=== PATIENT | male | born 1980 | race Two or more races ===

== ENCOUNTER 2017-11-09 13:39 | Emergency (ER) | payer MEDICAID ==
[~2017-11-09] VITALS: Ht 170.2 cm; Wt 73.9 kg
[2017-11-09] MEDS ORDERED: Dexamethasone 4mg/ml vial IM ONE (14:45)
--- NOTE | 2017-11-09 14:45 | Emergency Room Report ---
History of Present Illness General Chief Complaint: Sore Throat Source: Patient Present Illness HPI 37-year-old male presents to the emergency department complaining of 9 out of 10 in severity pain and swelling to the left side of his throat and tonsil progressive 2 days. Patient denies fevers or chills. Patient denies cough. Patient states that he was evaluated by his PMD and was instructed to come to the emergency department. Patient reports changes to his voice. He denies tenderness or pain under the tongue. Denies neck pain or stiffness. Denies CP, Palpitations, LOC, AMS, dizziness, Changes in Vision, Sensation, paresthesias, or a sudden severe headache. Allergies: Coded Allergies: No Known Allergies (Unverified , 11/09/17) Patient History Past Medical History: see triage record Past Surgical History: none Pertinent Family History: none Reviewed Nursing Documentation: PMH: Agreed, PSxH: Agreed Nursing Documentation-PMH Past Medical History: No Stated History Review of Systems All Other Systems: negative except mentioned in HPI Physical Exam Vital Signs Date Time Temp Pulse Resp B/P (MAP) Pulse Ox O2 Delivery O2 Flow Rate FiO2 11/09/17 14:22 99.1 92 18 136/86 98 Room Air 99.1 ENT: tonsillar swelling, other - moderate soft tissue swelling of the left posterior tonsillar pillar, uvular shift to the right side. , no TTp under the tongue. Neck: no meningismus, no bony tend Procedures Incision and Drainage Incision and Drainage : Consent: Verbal Site: Left Posterior tonsillar pillar Blade Size: 18 Guage Spinal needle, with cover -cut and used as a guide. Wound Location: other - throat Wound's Depth, Shape: other - moderate soft tissue swelling of the left posterior tonsillar pillar, uvular shift to the right side. Wound Explored: contaminated - purulent d/c aspirated ~ 10cc Anesthesia: other - 4% Lidocaine nebulized Volume Anesthetic (ccs): 5 Splint Applied?: No Sling Applied?: No Patient Tolerated: Well Complications: None Medical Decision Making PA Attestation Dr. Harris is my supervising Physician whom patient management has been discussed with. Diagnostic Impression: Primary Impression: Peritonsillar abscess ER Course 37-year-old male presents to the emergency department complaining of 9 out of 10 in severity pain and swelling to the left side of his throat and tonsil progressive 2 days. Patient denies fevers or chills. Patient denies cough. Patient states that he was evaluated by his PMD and was instructed to come to the emergency department. Patient reports changes to his voice. He denies tenderness or pain under the tongue. Denies neck pain or stiffness. Denies CP, Palpitations, LOC, AMS, dizziness, Changes in Vision, Sensation, paresthesias, or a sudden severe headache. Ddx considered but are not limited to: pharyngitis, strep, [employer], ludwigs angina, retropharyngeal abscess, URI just to name a few. Vital signs: are WNL, pt. is afebrile H&PE are most consistent with: Left sided [employer] ORDERS: None required at this time as the diagnosis is clinical ED INTERVENTIONS: -Drainage: 10cc of purulent d/c was aspirated with a 18g Spinal needle. - Clindamycin IM -Decadron IM -[place] PO -d/c instructions translated to pt. by LEELEE Malagon. DISCHARGE: At this time pt. is stable for d/c to home. Will provide printed patient care instructions, and any necessary prescriptions. Care plan and follow up instructions have been discussed with the patient prior to discharge. Last Vital Signs Date Time Temp Pulse Resp B/P (MAP) Pulse Ox O2 Delivery O2 Flow Rate FiO2 11/09/17 14:22 99.1 92 18 136/86 98 Room Air 99.1 Disposition: HOME, SELF-CARE Condition: Stable Scripts Hydrocodone Bit/Acetaminophen 5-325* (NORCO 5-325*) 1 Each Tablet 1 TAB ORAL Q6H Y for For Pain, #5 TAB 0 Refills Prov: Radha Montague P.A. 11/09/17 Ibuprofen* (MOTRIN*) 600 Mg Tablet 600 MG ORAL THREE TIMES A DAY, #20 TAB 0 Refills Prov: Radha Montague P.A. 11/09/17 Clindamycin Hcl (CLINDAMYCIN HCL) 300 Mg Capsule 300 MG ORAL FOUR TIMES A DAY for 7 Days, #28 CAP Prov: Radha Montague P.A. 11/09/17 Patient Instructions: Peritonsillar Abscess Additional Instructions: Take medications as directed. Follow up with an ENT Specialist within 24 hours, even if your symptoms have resolved. --Please review list of primary care clinics, if you do not already have a primary care provider Return sooner to ED if new symptoms occur, or current symptoms become worse. Do not drink alcohol, drive, or operate heavy machinery while taking [place] as this may cause drowsiness. - Please note that this Emergency Department Report was dictated using [employer] client associate technology software, occasionally this can lead to erroneous entry secondary to interpretation by the dictation equipment. Radha Montague Nov 09, 2017 14:45
[2017-11-09] MEDS ORDERED: Lidocaine 4% Amp INH ONE (15:00)
[2017-11-09] MEDS ORDERED: Ketorolac 30mg Inj IM ONE (15:15)
[2017-11-09] MEDS ORDERED: IBUPROFEN600 MG ORAL (15:43)
[2017-11-09] MEDS ORDERED: CLINDAMYCIN HC300 MG ORAL (15:43)
[2017-11-09] MEDS ORDERED: NORCO 5-325 TA1 EACH ORAL (15:43)
[2017-11-09] MEDS ORDERED: HYDROcodone/Acetamin 7.5/325 tab ORAL ONE (15:45)
[2017-11-09] MEDS ORDERED: Clindamycin 300mg/ml vial inj IM ONE (15:45)
[2017-11-09 16:15] VITALS: BP 124/78
== END 2017-11-09 16:15 | disposition home or self-care (01) ==
LOC: EMR 14:53
DX: J36 Peritonsillar abscess (principal)
CPT/HCPCS: 10060; 94640; 94664; 96372; 99284; J1100; J1885; S0077

== ENCOUNTER 2019-01-18 14:52 | Emergency (ER) | payer MEDICAID ==
[~2019-01-18] VITALS: Ht 172.7 cm; Wt 77.1 kg
[~2019-01-18 14:52] MED LIST: CLINDAMYCIN HC300 MG ORAL; IBUPROFEN600 MG ORAL; NORCO 5-325 TA1 EACH ORAL
[2019-01-18 15:01] VITALS: BP 121/78
--- NOTE | 2019-01-18 16:32 | Emergency Room Report ---
History of Present Illness General Chief Complaint: Laceration Source: Patient Present Illness HPI 38-year-old male with no significant past medical history here complaining of pain and bleeding and left thumb after cutting his finger with a kitchen knife x1 hour ago. Patient reports that he was cutting vegetables as he accidentally cut the top layer of his left thumb rating the pain 10 out of 10 without radiation. Numbness and tingling. He came to the emergency room immediately and has not taken any medication for pain. Denies all other injury, is able to move his finger without complications. Chest pain, S OB, palpitation, and all other associated symptoms. Allergies: Coded Allergies: No Known Allergies (Unverified , 11/09/17) Patient History Past Medical History: see triage record Past Surgical History: unable to obtain Pertinent Family History: none Immunizations: UTD - Tdap UTD Reviewed Nursing Documentation: PMH: Agreed; PSxH: Agreed Nursing Documentation-[facility] Past Medical History: No Stated History Review of Systems All Other Systems: negative except mentioned in HPI Physical Exam Vital Signs Date Time Temp Pulse Resp B/P (MAP) Pulse Ox O2 Delivery O2 Flow Rate FiO2 01/18/19 15:01 98.4 81 16 121/78 97 Room Air Sp02 EP Interpretation: reviewed, normal General Appearance: normal inspection, well appearing, no apparent distress Head: normocephalic, atraumatic Eyes: bilateral eye normal inspection, bilateral eye PERRL ENT: normal ENT inspection, hearing grossly normal Neck: normal inspection, full range of motion, supple Respiratory: normal inspection, chest non-tender, lungs clear, normal breath sounds, no rhonchi, no retraction Cardiovascular #1: normal inspection, regular rate, rhythm, no edema, no murmur , normal capillary refill Cardiovascular #2: 2+ radial (R), 2+ radial (L) Gastrointestinal: normal inspection, non tender, soft Musculoskeletal: digits/nails normal, gait/station normal, other - Superficial laceration left thumb Neurologic: normal inspection, alert Psychiatric: normal inspection, judgement/insight normal Skin: laceration - superficial left thumb Lymphatic: normal inspection, no adenopathy Procedures Laceration/Wound Repair Laceration/Wound Repair : Consent: Verbal Wound Location: upper extremity Wound's Depth, Shape: superficial Wound Length (cm): 1 Wound Explored: clean Betadine Prep?: Yes Anesthesia: 1% Lidocaine Wound Debrided: minimal Wound Repaired With: Steri-strips, Dermabond Number of Sutures: 3 Layer Closure?: Yes Sterile Dressing Applied?: No Splint Applied?: No Sling Applied?: No Patient Tolerated: Well Complications: None Progress due to the location of the laceration on the medical and removal of the top layer I was unable to do any sutures applied 3 Steri-Strips and did proper nonadhesive dressing to apply pressure and reduce bleeding Medical Decision Making PA Attestation All my diagnosis and treatment plans were reviewed ad discussed with my supervising physician Dr. Farrell Diagnostic Impression: Primary Impression: Laceration of finger ER Course 38-year-old male with no significant past medical history here complaining of pain and bleeding and left thumb after cutting his finger with a kitchen knife x1 hour ago. Patient reports that he was cutting vegetables as he accidentally cut the top layer of his left thumb rating the pain 10 out of 10 without radiation. Numbness and tingling. He came to the emergency room immediately and has not taken any medication for pain. Denies all other injury, is able to move his finger without complications. Chest pain, S OB, palpitation, and all other associated symptoms. Lidocaine was used for numbing, steri strips applied after wound was properly cleaned as I was unable to use sutures due to location of the laceration and its superficial presentation, no imaging was ordered prior to closure of wound due to its superficial nature and cleaning with proper solution, nonadhesive dressing was applied, sensation was intact, pt was advised to follow up with pcp in 2-3 days for wound check Ddx considered but are not limited to: superficial laceration left thumb, deep laceration, tendon involvement due to laceration Vital signs: are WNL, pt. is afebrile H&PE are most consistent with: superficial laceration left thumb, pt has full sensation and full ROM ORDERS: lidocaine, steristrips, ibuprofen, wound dressing ED INTERVENTIONS: wound repair and dressing DISCHARGE: At this time pt. is stable for d/c to home. Will provide printed patient care instructions, and any necessary prescriptions. Care plan and follow up instructions have been discussed with the patient prior to discharge. Follow-up with your primary care provider or urgent care facility in 2 to 3 days for wound check a fever chills, excess bleeding return emergency room proper wound management was explained to the patient and aftercare instructions were given to the patient Last Vital Signs Date Time Temp Pulse Resp B/P (MAP) Pulse Ox O2 Delivery O2 Flow Rate FiO2 01/18/19 15:01 98.4 81 16 121/78 (92) 97 Room Air Disposition: HOME, SELF-CARE Condition: Stable Scripts Ibuprofen* (MOTRIN*) 600 Mg Tablet 600 MG ORAL Q8H PRN for For Pain, #30 TAB 0 Refills Prov: Ray Shine 01/18/19 Patient Instructions: Laceration Care, Adult Additional Instructions: Follow-up with a primary care provider in 2 to 3 days for wound check Ray Shine January 18, 2019 16:32
[2019-01-18] MEDS ORDERED: IBUPROFEN600 MG ORAL (16:33)
[2019-01-18 16:38] VITALS: BP 117/76
== END 2019-01-18 16:38 | disposition home or self-care (01) ==
LOC: EMR 15:42
DX: S61.012A Laceration without foreign body of left thumb without damage to nail, initial encounter (principal); W26.0XXA Contact with knife, initial encounter; Y93.G1 Activity, food preparation and clean up; Y92.000 Kitchen of unspecified non-institutional (private) residence as the place of occurrence of the external cause
CPT/HCPCS: 12001; 99283; Z7502